=== PATIENT | female | born 1940 | race Caucasian/White ===

== ENCOUNTER → 2018-06-30 12:37 | Outpatient (CLI) | payer MEDICARE, OTHER, SELFPAY ==
--- NOTE | 2018-06-30 | DI.US.S_ITS ---
LIMITED ULTRASOUND OF RIGHT BREAST AND AXILLA: 06/30/2018 CLINICAL: Palpable right breast/retroarolar lump. Comparison is made to exams dated: 06/30/2018 mammogram, 08/31/2017 ultrasound, 08/31/2017 mammogram, 08/13/2017 mammogram - [facility], 07/17/2014 mammogram, and 06/12/2010 mammogram - [facility]. Ultrasound of the right breast retroareolar and axilla regions was performed. There is 1.4 cm x 0.6 cm x 1 cm oval mass with a microlobulated margin in the right breast at 9 o'clock anterior depth. This mass is heterogeneously hypoechoic, wider than tall, without significant posterior shadow, but no posterior enhancement. This correlates as palpated and with mammography findings. Color flow imaging demonstrates that there is vascularity present. No abnormalities were seen sonographically in the right axilla. IMPRESSION: SUSPICIOUS OF MALIGNANCY The 1.4 cm x 0.6 cm x 1 cm oval mass in the right breast has a differential diagnosis of a sebaceous cyst, folliculitis, a papillary lesion, fibroadenoma, granulomatous reaction, or less likely carcinoma, and is at a low suspicion for malignancy. An ultrasound guided biopsy is recommended. Findings and recommendations were discussed with the patient by Dr. Morrell. This exam was interpreted at Station ID: [id number]. Electronically Signed By: Elisha aguilar/:07/01/2018 01:31:09 letter sent: Biopsy Required Ultrasound BI-RADS: 4a Suspicious abnormality - low suspicion for malignancy
--- NOTE | 2018-06-30 | DI.MG.S_ITS ---
BILATERAL DIGITAL DIAGNOSTIC MAMMOGRAM 3D/2D SHORT-TERM FOLLOW-UP: 06/30/2018 CLINICAL: Patient returns for a late 6 month follow up of right breast, due for bilateral exam. Comparison is made to exams dated: 08/31/2017 mammogram, 08/13/2017 mammogram - [facility], and 07/17/2014 mammogram - [facility]. The tissue of both breasts is heterogeneously dense. This may lower the sensitivity of mammography. There is an irregular equal density mass in the right breast at 9 o'clock anterior depth. Mammographic appearance of this finding has not significantly changed since previous exam. 4 mm nodule previously present in medial periareolar right breast is no longer visible. No other significant masses, calcifications, or other findings are seen in either breast. IMPRESSION: INCOMPLETE: NEEDS ADDITIONAL IMAGING EVALUATION The irregular equal density mass in the right breast is indeterminate. This corresponds to palpable abnormality. Ultrasound is recommended which was performed immediately following this exam. This exam was interpreted at Station ID: [id number]. NOTE: For mammograms, a report in lay terms will be sent to the patient. Approximately 15% of breast malignancies will not be visualized mammographically. In the management of a palpable breast mass, a negative mammogram must not discourage biopsy of a clinically suspicious lesion. Electronically Signed By: Elisha aguilar/:07/01/2018 01:20:02 ACR BI-RADS Category 0: Incomplete [id number]
== END ==
PROVIDERS: PCP Internal Medicine; Visit Provider Family Medicine
DX: R92.8 Other abnormal and inconclusive findings on diagnostic imaging of breast (principal); N63.10 Unspecified lump in the right breast, unspecified quadrant
CPT/HCPCS: 76642; 77066; G0279

== ENCOUNTER → 2018-07-20 13:36 | Outpatient (CLI) | payer MEDICARE, OTHER, SELFPAY ==
--- NOTE | 2018-07-20 | DI.MG.S_ITS ---
UNILATERAL RIGHT DIGITAL DIAGNOSTIC MAMMOGRAM POST-NEEDLE BIOPSY: 07/20/2018 CLINICAL: Right breast Mass. Comparison is made to exams dated: 06/30/2018 mammogram, 08/13/2017 mammogram - [facility], and 07/17/2014 mammogram - [facility]. The tissue of right breast is heterogeneously dense. This may lower the sensitivity of mammography. There is a marker clip in the appropriate position in the right breast at 9 o'clock anterior depth. This marker clip placement is at the biopsy site. IMPRESSION: POST PROCEDURE MAMMOGRAM FOR MARKER PLACEMENT There was a successful marker clip placement in the right breast anterior depth. This exam was interpreted at Station ID: [id number]. NOTE: For mammograms, a report in lay terms will be sent to the patient. Approximately 15% of breast malignancies will not be visualized mammographically. In the management of a palpable breast mass, a negative mammogram must not discourage biopsy of a clinically suspicious lesion. Electronically Signed By: Damion urbano/:07/20/2018 16:23:50 ACR BI-RADS Category Post-procedure mammogram for marker placement
--- NOTE | 2018-07-20 | PATH_ITS ---
[facility] Accession Number: [id number] . 01 Material submitted: . RIGHT BREAST . 01 Diagnosis: Right Breast, Biopsy: Fibroadenoma. Focal microcalcifications. V/07/22/2018 . 01 Electronically signed: . Christiana Singleton MD, Pathologist NPI- [id number] . 01 Gross description: . Received one formalin-filled container labeled with the patient's name and labeled right breast biopsy. The specimen is received with plastic filter in container, sample loose in container. The specimen consists of multiple yellow-christensen to christensen-wayne portions of cylindrical shaped tissue and blood, which aggregate to 1.5 x 1.0 x 0.3 cm. The specimen is filtered and entirely submitted in two cassettes. Collection date is 07/20/2018. Collection time per container 1450. Total fixation time 12 hours up to 24. ([facility]:[id number]) /[facility] . 01 Pathologist provided ICD-10: D24.1 . 01 CPT . 271996 Performed at: [facility] [address] [place] [address] [id number] MD Chetan Easley MD Phone: [phone]
--- NOTE | 2018-07-20 | DI.US.S_ITS ---
ULTRASOUND GUIDED BIOPSY RIGHT BREAST USING VACUUM DEVICE WITH MARKING DEVICE INSERTED: 07/20/2018 CLINICAL: RIGHT breast biopsy. PATIENT CONSENT: Risks (minor bleeding, infection, vasovagal reaction and repeat procedure), benefits and alternatives were explained to the patient and written informed consent was obtained. Correlation is made to exams dated: 07/20/2018 mammogram, 06/30/2018 ultrasound, 06/30/2018 mammogram, and 08/31/2017 [facility]. An ultrasound guided biopsy using real-time ultrasound was performed for the lobulated mass located in the right breast at 9 o'clock anterior depth. The skin was prepped in the usual manner. Local anesthetic was administered to the access site. A small incision was made in the breast. The abnormality was approached from the lateral aspect. A biopsy needle was placed adjacent to the abnormality under ultrasound guidance. Once the needle was documented to be in the correct location, six specimens were obtained using the Mammotome biopsy system. A clip was inserted into the biopsy cavity. The specimens were sent to the laboratory for pathological analysis. IMPRESSION: ULTRASOUND GUIDED BIOPSY BENIGN Ultrasound guided biopsy of the mass in the right breast at 9 o'clock anterior depth was successful. Pathology results demonstrated fibroadenoma with focal microcalcifications. Imaging findings and pathology findings are concordant. Recommend return to annual screening. This exam was interpreted at Station ID: [id number]. Damion urbano,aty/:07/25/2018 18:05:18
== END ==
PROVIDERS: PCP Internal Medicine; Visit Provider Family Medicine
DX: D24.1 Benign neoplasm of right breast (principal)
CPT/HCPCS: 19083; 77065; 88305

== ENCOUNTER → 2019-10-25 12:37 | Outpatient (CLI) | payer MEDICARE, OTHER, SELFPAY | PROVIDERS: PCP Internal Medicine; Referring Provider Internal Medicine Endocrinology, Diabetes & Metabolism; Visit Provider Internal Medicine Endocrinology, Diabetes & Metabolism | DX: M81.0 Age-related osteoporosis without current pathological fracture (principal); Z78.0 Asymptomatic menopausal state; Z90.722 Acquired absence of ovaries, bilateral; Z82.62 Family history of osteoporosis | CPT/HCPCS: 77080 ==

== ENCOUNTER → 2020-03-30 14:12 | Outpatient (CLI) | payer MEDICARE, OTHER, SELFPAY ==
[2020-03-30 15:38] LABS: COVID19 -Nasal RAPID Negative (Negative)
== END ==
PROVIDERS: PCP Internal Medicine; Visit Provider Physician Assistant
DX: Z11.59 Encounter for screening for other viral diseases (principal)
CPT/HCPCS: 87635